=== PATIENT | female | born 1960 | race Caucasian/White ===

== ENCOUNTER 2020-02-25 07:48 | Day surgery (SDC) | payer BC ==
[~2020-02-25 07:48] MED LIST: Lactated Ringers 1,000 ML IV SCH; Lidocaine 1%/Sod Bicarbonate in NS 8.4% 1 ML Syringe IDERM PRN; Scopolamine 1.5 MG Transdermal Patch TOP SCH; Sodium Chloride 0.9% 10 ML Syringe FLUSH PRN
[2020-02-25] MEDS ORDERED: fentaNYL 100 MCG/2 ML SDV ONE (07:58)
[2020-02-25] MEDS ORDERED: Propofol 200 MG/20 ML SDV ONE ×3 (07:58→10:10)
[2020-02-25] MEDS ORDERED: Lidocaine 1% 4 ML ONE (07:59)
--- NOTE | 2020-02-25 09:15 | PCM.PREANE ---
Preanesthetic Assessment - Procedure Proposed Procedure: Diagnostic Colonoscopy - Anesthesia/Transfusion/Family Hx Anesthesia History: Prior Anesthesia Reaction Type of Anesthesia Reaction: Excessive Nausea/Vomiting (lasting up to one week one time. ) Family History of Anesthesia Reaction: No - Review of Systems General: Fatigue Pulmonary: No Symptoms (Covid infection in September, using inhaler for SOB at that time. CXR negative for pneumonia. No inhaler needed for 2 months now. ) Cardiovascular: No Symptoms Gastrointestinal: Other (GERD) Neurological: Headache (Daily, sinus related. ) Other: Reports: Sinus Problem (Allergic Rhinitis, seeing an lead generation specialist in [place], changed medications one week ago. ), Depression, Anxiety - Physical Assessment NPO Status Date: 02/25/20 NPO Status Time: 04:00 Vital Signs: Last Vital Signs Temp 36.5 C 02/25/20 07:45 Pulse 88 02/25/20 07:45 Resp 18 02/25/20 07:45 BP 127/79 02/25/20 07:45 Pulse Ox 98 02/25/20 07:45 Height: 1.63 m Weight: 90.3 kg ASA Class: 2 Mental Status: Alert & Oriented x3 Airway Class: Mallampati = 2 Dentition: Reports: Caries ROM/Head Extension: Full Lungs: Clear to Auscultation, Normal Respiratory Effort Cardiovascular: Regular Rate, Regular Rhythm - Lab Values: Laboratory Last Values SARS-CoV-2 RNA (ASAD) Negative (NEGATIVE) 02/24/20 12:00 - Allergies Allergies/Adverse Reactions: Allergies Allergy/AdvReac Type Severity Reaction Status Date / Time cefdinir Allergy Hives Verified 02/25/20 08:48 cephalexin [From Keflex] Allergy Rash Verified 02/25/20 08:48 fluoxetine [From Prozac] Allergy Cannot Verified 02/25/20 08:48 Remember house dust Allergy Cannot Verified 02/25/20 08:48 Remember metronidazole [From Flagyl] Allergy Hives Verified 02/25/20 08:48 Penicillins Allergy Cannot Verified 02/25/20 08:48 Remember - Anesthesia Plan Pre-Op Medication Ordered: Other (Scopalamine patch) - Acknowledgements Anesthesia Type Planned: MAC Pt an Appropriate Candidate for the Planned Anesthesia: Yes Alternatives and Risks of Anesthesia Discussed w Pt/Guardian: Yes Pt/Guardian Understands and Agrees with Anesthesia Plan: Yes PreAnesthesia Questionnaire HEENT History: Reports: Allergic Rhinitis, Sinusitis, Other (See Below) Other HEENT History: nasal congestion, bacterial conjunctivitis, wears glasse Cardiovascular History: Reports: None Respiratory History: Reports: Other (See Below) Other Respiratory History: cough Gastrointestinal History: Reports: GERD, Irritable Bowel Syndrome, Other (See Below) Other Gastrointestinal History: rectal bleeding, hemorrhoids, post op nausea and vomiting Genitourinary History: Reports: Renal Calculus 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 Below) Other OB/BYN History: fibrocystic breast disease, hot flashes, breast lumpectomy Musculoskeletal History: Reports: Other (See Below) Other Musculoskeletal History: ankle injury/weakness, back pain, sciatica Neurological History: Reports: None Psychiatric History: Reports: Anxiety, Depression Endocrine/Metabolic History: Reports: None Hematologic History: Reports: None Immunologic History: Reports: None Oncologic (Cancer) History: Reports: None Dermatologic History: Reports: Other (See Below) Other Dermatologic History: dry skin, hives - Past Surgical History Head Surgeries/Procedures: Reports: None HEENT Surgical History: Reports: None Cardiovascular Surgical History: Reports: None Respiratory Surgical History: Reports: None GI Surgical History: Reports: Appendectomy, Colonoscopy Female Surgical History: Reports: Hysterectomy, Oophorectomy, Tubal Ligation Male Surgical History: Reports: None Endocrine Surgical History: Reports: None Neurological Surgical History: Reports: None Musculoskeletal Surgical History: Reports: Other (See Below) Other Musculoskeletal Surgeries/Procedures:: left ankle procedure with intact hardware Oncologic Surgical History: Reports: None Dermatological Surgical History: Reports: None - SUBSTANCE USE Tobacco Use Status *Q: Former Tobacco User Days Per Week of Alcohol Use: 2 Number of Drinks Per Day: 2 Total Drinks Per Week: 4 Recreational Drug Use History: No - HOME MEDS Home Medications: Home Meds Acetaminophen [Tylenol] 650 mg PO Q6H PRN 02/24/20 [History] Albuterol [Ventolin HFA] 1 - 2 puff INH Q4H PRN 02/24/20 [History] Cholecalciferol (Vitamin D3) [Vitamin D3] 2,000 unit PO DAILY 02/24/20 [History] Fluticasone Propionate [Flonase] 1 dose NASBOTH BID PRN 02/24/20 [History] Ibuprofen 800 mg PO BID PRN 02/24/20 [History] Levocetirizine Dihydrochloride 5 mg PO BEDTIME 02/24/20 [History] Melatonin 5 mg PO BEDTIME 02/24/20 [History] Multivitamin [Daily-Siva] 1 tab PO DAILY 02/24/20 [History] Omeprazole 40 mg PO DAILY 02/24/20 [History] Vitamin B Complex 1 cap PO DAILY 02/24/20 [History] buPROPion HCL [Wellbutrin Xl] 300 mg PO DAILY 02/24/20 [History] - CURRENT (IN HOUSE) MEDS Current Meds: Current Medications Lactated Ringer's (Ringers, Lactated) 1,000 mls @ 125 mls/hr IV ASDIRECTED DELONTE Stop: 02/25/20 23:00 Last Admin: 02/25/20 08:00 Dose: 125 mls/hr Documented by: Lidocaine/Sodium Bicarbonate (Buffered Lidocaine 1% In Ns 8.4%) 0.25 ml IDERM ONETIME PRN PRN Reason: Prior to IV Start Stop: 02/25/20 18:00 Last Admin: 02/25/20 08:00 Dose: 0.25 ml Documented by: Scopolamine (Transderm-Scop) 1.5 mg TOP ONETIME DELONTE Stop: 02/25/20 13:00 Last Admin: 02/25/20 09:08 Dose: 1.5 mg Documented by: Sodium Chloride (Saline Flush) 10 ml FLUSH ASDIRECTED PRN PRN Reason: Keep Vein Open Stop: 02/25/20 18:00 Discontinued Medications Fentanyl (Sublimaze) Confirm Administered Dose 100 mcg .ROUTE .STK-MED ONE Stop: 02/25/20 07:59 Lidocaine HCl (Xylocaine-Mpf 1%) Confirm Administered Dose 4 mls @ as directed .ROUTE .STK-MED ONE Stop: 02/25/20 08:00 Propofol (Diprivan 20 Ml) Confirm Administered Dose 400 mg .ROUTE .STK-MED ONE Stop: 02/25/20 07:59
[2020-02-25] MEDS ORDERED: Ondansetron 4 MG/2 ML SDV ONE (10:03)
[2020-02-25] MEDS ORDERED: Lactated Ringers 1,000 ML ONE (10:26)
--- NOTE | 2020-02-25 10:35 | PCM.PRNOTE ---
- Free Text/Narrative Note: Date: 02/25/2020 Procedure: diagnostic colonoscopy Indication: rectal bleeding Endoscopist: Redd Sethi MD Findings: fair prep. single 1 cm sessile nodular polyp in cecum. Diverticulosis. Internal hemorrhoids. Detailed Report: The patient was taken to the endoscopy suite and placed in left lateral decubitus position. Timeout was performed, and monitored anesthesia care initiated. Inspection of the anus and digital rectal exam were unremarkable. The colonoscope was inserted and advanced all the way to the cecum. There was some redundancy in the colon, and the patient ended up having to be positioned supine in order to reach the cecum. The appendiceal orifice was visualized. The terminal ileum was intubated. A single sessile 1 cm nodular polyp was noted in the cecum almost opposite of the ileocecal junction. This was removed piecemeal with jumbo forceps. Remnant tissue was fulgurated. The scope was slowly withdrawn and mucosal surfaces carefully inspected. The prep was fair, with a fair amount of particulate material in the different portions of the colon. No other polyps were identified. There was moderate diverticulosis of the sigmoid colon. Moderate internal hemorrhoidal disease was noted. Air was suctioned prior to withdrawal of the scope. The patient tolerated the procedure well.
--- NOTE | 2020-02-25 10:44 | PCM48HPAN ---
Post Anesthesia Note - EVALUATION WITHIN 48HRS OF ANESTHETIC Vital Signs in Normal Range: Yes Patient Participated in Evaluation: Yes Respiratory Function Stable: Yes Airway Patent: Yes Cardiovascular Function Stable: Yes Hydration Status Stable: Yes Pain Control Satisfactory: Yes Nausea and Vomiting Control Satisfactory: Yes Mental Status Recovered: Yes Vital Signs: Last Vital Signs Temp 36.2 C 02/25/20 10:35 Pulse 89 02/25/20 10:35 Resp 20 02/25/20 10:35 BP 102/72 02/25/20 10:35 Pulse Ox 98 02/25/20 10:35
== END 2020-02-25 11:36 | disposition home or self-care (01) ==
LOC: JD.SDS 07:48
PROVIDERS: ATTEND Surgery
DX: D12.0 Benign neoplasm of cecum (principal); K57.31 Diverticulosis of large intestine without perforation or abscess with bleeding; K64.8 Other hemorrhoids; F41.9 Anxiety disorder, unspecified; F32.9 Major depressive disorder, single episode, unspecified; Z88.8 Allergy status to other drugs, medicaments and biological substances; Z88.0 Allergy status to penicillin; Z79.899 Other long term (current) drug therapy; Z90.49 Acquired absence of other specified parts of digestive tract; Z98.890 Other specified postprocedural states; Z87.891 Personal history of nicotine dependence; Z01.812 Encounter for preprocedural laboratory examination; Z20.828 Contact with and (suspected) exposure to other viral communicable diseases
CPT/HCPCS: 45380; 87635; A9270; J2001; J2405; J2704; J3010; J7120; U0002

== ENCOUNTER 2020-02-26 21:26 | Emergency (ER) | payer BC ==
[2020-02-26] MEDS ORDERED: Sodium Chloride 0.9% 10 ML Syringe FLUSH PRN (22:00)
[2020-02-26] MEDS ORDERED: Sodium Chloride 0.9% 1,000 ML IV STA (22:19)
[2020-02-26] MEDS ORDERED: Ondansetron 4 MG/2 ML SDV IVPUSH ONE (22:19)
[2020-02-26] MEDS ORDERED: HYDROmorphone 0.5 MG/0.5 ML Syringe IVPUSH ONE (22:19)
--- NOTE | 2020-02-26 22:28 | EDM.PDOC ---
<Varsha Elliott - Last Filed: 02/26/20 23:39> ED HPI GENERAL MEDICAL PROBLEM - General Chief Complaint: Abdominal Pain Stated Complaint: ABDOMINAL PAIN CHILLS NAUSEA Time Seen by Provider: 02/26/20 21:51 Source of Information: Reports: Patient, RN Notes Reviewed History Limitations: Reports: No Limitations - History of Present Illness INITIAL COMMENTS - FREE TEXT/NARRATIVE: Patient is a 59-year-old female presenting to the emergency department with complaints of right lower and mid abdominal pain as well as nausea which began earlier this afternoon. Patient had a colonoscopy completed yesterday with Dr. Sethi. She states that there was a polyp removed. On review of Dr. Sethi's notes, there was a 1 cm polyp removed from near the ileocecal j unction. Patient states that she did well after surgery. She has not had any bowel movement since surgery but she is passing gas. She has a history significant for previous appendectomy. Colonoscopy was completed due to an episode of bloody stool. Right Lower Abdomen Pain Score (Numeric/FACES): 7 - Related Data Allergies Allergy/AdvReac Type Severity Reaction Status Date / Time cefdinir Allergy Hives Verified 02/26/20 21:59 cephalexin [From Keflex] Allergy Rash Verified 02/26/20 21:59 fluoxetine [From Prozac] Allergy Cannot Verified 02/26/20 21:59 Remember house dust Allergy Cannot Verified 02/26/20 21:59 Remember metronidazole [From Flagyl] Allergy Hives Verified 02/26/20 21:59 Penicillins Allergy Cannot Verified 02/26/20 21:59 Remember Home Meds: Home Meds Acetaminophen [Tylenol] 650 mg PO Q6H PRN 02/24/20 [History] Albuterol [Ventolin HFA] 1 - 2 puff INH Q4H PRN 02/24/20 [History] Cholecalciferol (Vitamin D3) [Vitamin D3] 2,000 unit PO DAILY 02/24/20 [History] Fluticasone Propionate [Flonase] 1 dose NASBOTH BID PRN 02/24/20 [History] Ibuprofen 800 mg PO BID PRN 02/24/20 [History] Levocetirizine Dihydrochloride 5 mg PO BEDTIME 02/24/20 [History] Melatonin 5 mg PO BEDTIME 02/24/20 [History] Multivitamin [Daily-Siva] 1 tab PO DAILY 02/24/20 [History] Omeprazole 40 mg PO DAILY 02/24/20 [History] Vitamin B Complex 1 cap PO DAILY 02/24/20 [History] buPROPion HCL [Wellbutrin Xl] 300 mg PO DAILY 02/24/20 [History] Amoxicillin/Clavulanate K [Augmentin 875-125 MG] 1 tab PO BID #15 tablet 02/27/20 [Rx] Past Medical History HEENT History: Reports: Allergic Rhinitis, Sinusitis, Other (See Below) Other HEENT History: nasal congestion, bacterial conjunctivitis, wears glasse Cardiovascular History: Reports: None Respiratory History: Reports: Other (See Below) Other Respiratory History: cough Gastrointestinal History: Reports: GERD, Irritable Bowel Syndrome, Other (See Below) Other Gastrointestinal History: rectal bleeding, hemorrhoids, post op nausea and vomiting Genitourinary History: Reports: Renal Calculus 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: fibrocystic breast disease, hot flashes, breast lumpectomy Musculoskeletal History: Reports: Other (See Below) Other Musculoskeletal History: ankle injury/weakness, back pain, sciatica Neurological History: Reports: None Psychiatric History: Reports: Anxiety, Depression Endocrine/Metabolic History: Reports: None Hematologic History: Reports: None Immunologic History: Reports: None Oncologic (Cancer) History: Reports: None Dermatologic History: Reports: Other (See Below) Other Dermatologic History: dry skin, hives - Past Surgical History Head Surgeries/Procedures: Reports: None HEENT Surgical History: Reports: None Cardiovascular Surgical History: Reports: None Respiratory Surgical History: Reports: None GI Surgical History: Reports: Appendectomy, Colonoscopy Female Surgical History: Reports: Hysterectomy, Oophorectomy, Tubal Ligation Male Surgical History: Reports: None Endocrine Surgical History: Reports: None Neurological Surgical History: Reports: None Musculoskeletal Surgical History: Reports: Other (See Below) Other Musculoskeletal Surgeries/Procedures:: left ankle procedure with intact hardware Oncologic Surgical History: Reports: None Dermatological Surgical History: Reports: None Social & Family History - Tobacco Use Tobacco Use Status *Q: Never Tobacco User - Caffeine Use Caffeine Use: Reports: Coffee - Recreational Drug Use Recreational Drug Use: No ED ROS GENERAL - Review of Systems Review Of Systems: See Below Constitutional: Reports: Fever (99.5), Chills HEENT: Reports: No Symptoms Respiratory: Reports: No Symptoms Cardiovascular: Reports: No Symptoms Endocrine: Reports: No Symptoms GI/Abdominal: Reports: Abdominal Pain (RLQ and right mid abdomen), Nausea. Denies: Bloody Stool, Vomiting : Reports: No Symptoms. Denies: Dysuria, Flank Pain Musculoskeletal: Reports: No Symptoms Skin: Reports: No Symptoms Neurological: Reports: No Symptoms Psychiatric: Reports: No Symptoms Hematologic/Lymphatic: Reports: No Symptoms Immunologic: Reports: No Symptoms ED EXAM, GI/ABD - Physical Exam Exam: See Below Exam Limited By: No Limitations General Appearance: Alert, WD/WN, No Apparent Distress Respiratory/Chest: No Respiratory Distress, Lungs Clear, Normal Breath Sounds, No Accessory Muscle Use, Chest Non-Tender Cardiovascular: Normal Peripheral Pulses, Regular Rate, Rhythm, No Edema, No Gallop, No JVD, No Murmur, No Rub GI/Abdominal Exam: Normal Bowel Sounds, Soft, No Organomegaly, No Distention, No Abnormal Bruit, No Mass, Pelvis Stable, Tender (RLQ) Neurological: Alert, Oriented, CN II-XII Intact, Normal Cognition, Normal Gait, Normal Reflexes, No Motor/Sensory Deficits Psychiatric: Normal Affect, Normal Mood Skin Exam: Warm, Dry, Intact, Normal Color, No Rash Course - Re-Assessments/Exams Free Text/Narrative Re-Assessment/Exam: Patient is a 59-year-old female presenting to the emergency department with complaints of right lower and mid abdominal pain 1 day postop colonoscopy with polyp removal. Patient states that she was doing quite well postop, however today she developed this pain earlier this afternoon. Initially the pain was intermittent but now it is constant. Pain is to the right lower quadrant and right mid abdomen which would correspond with the area where the polyp was excised. She has had no vomiting but is nauseous. She has had no bowel movements but is passing gas. I have ordered CBC, CMP, CRP, urinalysis, CT scan abdomen pelvis with contrast. We will give her normal saline 1 L 150 mils per hour, Zofran for nausea, Dilaudid for pain. 02/26/20 23:46 Hematology was significant for a WBC minimally elevated at 10.14, creatinine 1.4, CRP 1.7. Urinalysis is suggestive of contamination. This has been sent for culture. CT of abdomen pelvis is pending. Case discussed with Dr. Collins. He will assume care and disposition of the patient. Departure - Departure Disposition: Home, Self-Care 01 Clinical Impression: Abdominal pain - Discharge Information Prescriptions: Amoxicillin/Clavulanate K [Augmentin 875-125 MG] 1 tab PO BID #15 tablet Instructions: Abdominal Pain, Adult, [id number] Referrals: Mika Tejeda Jr, MD [Primary Care Provider] - Redd Sethi MD [Physician] - Forms: ED Department Discharge Additional Instructions: You were seen in the emergency room after developing abdominal pain and nausea, following a colonoscopy on 02/25/2020. Work-up in the ER included several blood tests, a urinalysis, a swab for the SARS-CoV-2 virus, and a CT scan of your abdomen and pelvis with oral and IV contrast. The CT scan found a small amount of inflammation of the terminal ileum, likely due to the colonoscopy with biopsy, however, there is no sign of a perforated colon. The remainder of your work-up was unremarkable. You may take [id number] ibuprofen as needed for discomfort. If you are still having pain tomorrow, please follow-up with Dr. Sethi in his clinic. If any other problems, please do not hesitate to return to the ER. Sepsis Event Note (ED) - Evaluation Sepsis Screening Result: No Definite Risk <Steven Collins - Last Filed: 02/27/20 00:31> Course - Re-Assessments/Exams Free Text/Narrative Re-Assessment/Exam: 02/27/20 00:22 CT of the abdomen and pelvis with oral and IV contrast is read by [facility] as: 1. Possible early mild acute terminal ileitis as above. 2. Remainder of findings described as above. 02/27/20 00:[address] Sethi at 00:24. He felt that it was safe for the patient to be discharged home, however, if she is continuing to have pain tomorrow, she can follow-up with him in his clinic. Test results and the above plan was discussed with the patient. She is agreeable. She may take [id number] ibuprofen as needed for discomfort. Departure - Departure Time of Disposition: 00:32 Condition: Good - Discharge Information *PRESCRIPTION DRUG MONITORING PROGRAM REVIEWED*: Not Applicable *COPY OF PRESCRIPTION DRUG MONITORING REPORT IN PATIENT ZURDO: Not Applicable <Kim Davies - Last Filed: 03/02/20 08:43> Course - Vital Signs Last Recorded V/S: Last Vital Signs Temp 98.5 F 02/26/20 21:50 Pulse 94 02/26/20 21:50 Resp 18 02/26/20 21:50 BP 141/92 H 02/26/20 21:50 Pulse Ox 98 02/26/20 21:50 - Orders/Labs/Meds Labs: Laboratory Tests 02/26/20 02/26/20 02/26/20 Range/Units 22:03 22:03 22:28 WBC 10.14 H (3.98-10.04) K/mm3 RBC 4.65 (3.98-5.22) M/mm3 Hgb 14.2 (11.2-15.7) gm/dl Hct 43.1 (34.1-44.9) % MCV 92.7 (79.4-94.8) fl MCH 30.5 (25.6-32.2) pg MCHC 32.9 (32.2-35.5) g/dl RDW Std Deviation 45.4 (36.4-46.3) fL Plt Count 308 (182-369) K/mm3 MPV 9.1 L (9.4-12.3) fl Neut % (Auto) 78.7 H (34.0-71.1) % Lymph % (Auto) 13.3 L (19.3-51.7) % Luna % (Auto) 6.9 (4.7-12.5) % Eos % (Auto) 0.5 L (0.7-5.8) Baso % (Auto) 0.4 (0.1-1.2) % Neut # (Auto) 7.98 H (1.56-6.13) K/mm3 Lymph # (Auto) 1.35 (1.18-3.74) K/mm3 Luna # (Auto) 0.70 H (0.24-0.36) K/mm3 Eos # (Auto) 0.05 (0.04-0.36) K/mm3 Baso # (Auto) 0.04 (0.01-0.08) K/mm3 Sodium (136-145) mEq/L Potassium (3.5-5.1) mEq/L Chloride (98-107) mEq/L Carbon Dioxide (21-32) mEq/L Anion Gap (5-15) BUN (7-18) mg/dL Creatinine (0.55-1.02) mg/dL Est Cr Clr Drug Dosing mL/min Estimated GFR (MDRD) (>60) mL/min BUN/Creatinine Ratio (14-18) Glucose (74-106) mg/dL Calcium (8.5-10.1) mg/dL Total Bilirubin (0.2-1.0) mg/dL AST (15-37) U/L ALT (14-59) U/L Alkaline Phosphatase (46-116) U/L C-Reactive Protein (<1.0) mg/dL Total Protein (6.4-8.2) g/dl Albumin (3.4-5.0) g/dl Globulin gm/dL Albumin/Globulin Ratio (1-2) Urine Color Yellow (Yellow) Urine Appearance Clear (Clear) Urine pH 6.0 (5.0-8.0) Ur Specific [place] 1.020 (1.005-1.030) Urine Protein Negative (Negative) Urine Glucose (UA) Negative (Negative) Urine Ketones Negative (Negative) Urine Occult Blood Trace-lysed H (Negative) Urine Nitrite Negative (Negative) Urine Bilirubin Negative (Negative) Urine Urobilinogen 0.2 (0.2-1.0) Ur Leukocyte Esterase Trace H (Negative) Urine RBC 0-5 (0-5) /hpf Urine WBC 5-10 H (0-5) /hpf Ur Squamous Epith Cells 10-20 H (0-5) /hpf Urine Bacteria Rare (FEW) /hpf Urine Mucus Not seen (FEW) /hpf Urine HCG, Qual Negative (NEGATIVE) 02/26/20 Range/Units 22:28 WBC (3.98-10.04) K/mm3 RBC (3.98-5.22) M/mm3 Hgb (11.2-15.7) gm/dl Hct (34.1-44.9) % MCV (79.4-94.8) fl MCH (25.6-32.2) pg MCHC (32.2-35.5) g/dl RDW Std Deviation (36.4-46.3) fL Plt Count (182-369) K/mm3 MPV (9.4-12.3) fl Neut % (Auto) (34.0-71.1) % Lymph % (Auto) (19.3-51.7) % Luna % (Auto) (4.7-12.5) % Eos % (Auto) (0.7-5.8) Baso % (Auto) (0.1-1.2) % Neut # (Auto) (1.56-6.13) K/mm3 Lymph # (Auto) (1.18-3.74) K/mm3 Luna # (Auto) (0.24-0.36) K/mm3 Eos # (Auto) (0.04-0.36) K/mm3 Baso # (Auto) (0.01-0.08) K/mm3 Sodium 141 (136-145) mEq/L Potassium 3.6 (3.5-5.1) mEq/L Chloride 105 (98-107) mEq/L Carbon Dioxide 26 (21-32) mEq/L Anion Gap 13.6 (5-15) BUN 15 (7-18) mg/dL Creatinine 1.4 H (0.55-1.02) mg/dL Est Cr Clr Drug Dosing 37.36 mL/min Estimated GFR (MDRD) 38 (>60) mL/min BUN/Creatinine Ratio 10.7 L (14-18) Glucose 106 (74-106) mg/dL Calcium 9.2 (8.5-10.1) mg/dL Total Bilirubin 0.4 (0.2-1.0) mg/dL AST 18 (15-37) U/L ALT 29 (14-59) U/L Alkaline Phosphatase 101 (46-116) U/L C-Reactive Protein 1.7 H* (<1.0) mg/dL Total Protein 7.2 (6.4-8.2) g/dl Albumin 3.7 (3.4-5.0) g/dl Globulin 3.5 gm/dL Albumin/Globulin Ratio 1.1 (1-2) Urine Color (Yellow) Urine Appearance (Clear) Urine pH (5.0-8.0) Ur Specific [place] (1.005-1.030) Urine Protein (Negative) Urine Glucose (UA) (Negative) Urine Ketones (Negative) Urine Occult Blood (Negative) Urine Nitrite (Negative) Urine Bilirubin (Negative) Urine Urobilinogen (0.2-1.0) Ur Leukocyte Esterase (Negative) Urine RBC (0-5) /hpf Urine WBC (0-5) /hpf Ur Squamous Epith Cells (0-5) /hpf Urine Bacteria (FEW) /hpf Urine Mucus (FEW) /hpf Urine HCG, Qual (NEGATIVE) Meds: Medications Discontinued Medications Generic Name Dose Route Start Last Admin Trade Name Freq PRN Reason Stop Dose Admin Hydromorphone HCl 0.5 mg 02/26/20 22:19 02/26/20 22:46 Dilaudid IVPUSH 02/26/20 22:20 0.5 mg ONETIME ONE Administration Sodium Chloride 1,000 mls @ 150 mls/hr 02/26/20 22:19 02/26/20 22:39 Normal Saline IV 02/27/20 04:58 150 mls/hr NOW STA Administration Influenza Virus Vaccine 1 each 02/26/20 23:06 Pharmacy To Dose - Influenza Vaccine IM 02/26/20 23:07 ONETIME ONE Influenza Virus Vaccine 60 mcg 02/26/20 23:30 02/27/20 00:19 Fluzone Quad [id number] Syringe IM 02/26/20 23:31 60 mcg .ONCE ONE Administration Ondansetron HCl 4 mg 02/26/20 22:19 02/26/20 22:40 Zofran IVPUSH 02/26/20 22:20 4 mg ONETIME ONE Administration Sodium Chloride 10 ml 02/26/20 22:00 02/26/20 22:58 Saline Flush FLUSH 10 ml ASDIRECTED PRN Administration Keep Vein Open - Re-Assessments/Exams Free Text/Narrative Re-Assessment/Exam: 03/02/20 08:42 Pt was called regarding urine culture. She states that Dr. Sethi started her on antibiotics for this already the day after she was seen in the ED. Denies symptoms of cystitis.
[2020-02-26] MEDS ORDERED: FLU VACC QS2020-21(6MOS UP)/PF 60 MCG/0.5 ML SYRINGE IM ONE (23:30)
--- NOTE | 2020-02-27 08:42 | CT ---
CT abdomen and pelvis Technique: Multiple axial sections were obtained from above the dome of the diaphragm inferiorly through the pubic symphysis. Delayed images were also obtained of the bladder. Intravenous and oral contrast was utilized. Reconstructed coronal and sagittal images were obtained. Comparison: Previous noncontrast CT abdomen and pelvis exam of 03/30/16. Findings: Small portion of the visualized lung bases shows nothing acute. Minimal atelectasis is incidentally noted within the lingula. Very small low-density lesion is noted within the dome of the left lobe of the liver. This is too small to be accurately measured by Hounsfield units and measures about 5-6 mm. Slightly larger abnormality is noted within the right lobe of the liver which has Hounsfield unit measurements of a cyst and measures about 1.3 cm. No additional abnormality is seen within the liver. Spleen appears normal. Gallbladder contains no calcified gallstones. Adrenal glands show no nodule. Pancreas is within normal limits. Kidneys show symmetric contrast enhancement. Nonobstructing stone is noted within the left kidney inferiorly measuring about 9 mm. No ureteral dilatation or ureteral stone is seen. Delayed images show contrast within the ureters and within the bladder. Aorta shows no aneurysm. No retroperitoneal adenopathy or mesenteric abnormalities are seen. Very minimal fat-containing umbilical hernia is noted. Very minimal haziness around the terminal ileum is seen. Difficult to completely exclude a minimal terminal ileitis. Appendix is not visualized. No pelvic mass or adenopathy is seen. No free fluid or inflammatory change is appreciated. Very minimal diverticulosis is noted within the sigmoid colon. Bone window settings were reviewed which show degenerative change scattered throughout the spine, most prominent is within the lumbar region. No acute osseous abnormality is appreciated. Impression: 1. Very slight inflammatory change around the terminal ileum and difficult to exclude minimal terminal ileitis. Please correlate with the patient's symptoms. 2. Several small abnormalities within the liver most likely representing cysts. 3. Nonobstructing calculus within the lower left kidney. 4. No other acute abnormality is appreciated. 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
== END 2020-02-27 00:46 | disposition home or self-care (01) ==
LOC: JD.ED 21:26
DX: R10.31 Right lower quadrant pain (principal); F32.9 Major depressive disorder, single episode, unspecified; K21.9 Gastro-esophageal reflux disease without esophagitis; Z88.1 Allergy status to other antibiotic agents; Z88.8 Allergy status to other drugs, medicaments and biological substances; Z91.048 Other nonmedicinal substance allergy status; Z88.0 Allergy status to penicillin; Z79.899 Other long term (current) drug therapy
CPT/HCPCS: 36415; 74177; 80053; 81001; 81025; 85025; 86140; 87086; 87088; 87181; 87184; 90471; 90686; 96374; 96375; 99284; J1170; J2405; J7030; G0008

== ENCOUNTER 2023-01-16 10:35 | Emergency (ER) | payer BC | END 2023-01-16 15:17 | disposition home or self-care (01) | LOC: JD.ED 10:35 | DX: S09.90XA Unspecified injury of head, initial encounter (principal); M79.672 Pain in left foot; K21.9 Gastro-esophageal reflux disease without esophagitis; Z88.0 Allergy status to penicillin; Z79.899 Other long term (current) drug therapy; Z86.16 Personal history of COVID-19; Z91.048 Other nonmedicinal substance allergy status; Z88.1 Allergy status to other antibiotic agents; W10.9XXA Fall (on) (from) unspecified stairs and steps, initial encounter; Y99.0 Civilian activity done for income or pay | CPT/HCPCS: 70450; 70450-26; 72125; 72125-26; 73610-26-LT; 73610-LT; 73630-26-LT; 73630-LT; 99283; 99284 ==